=== PATIENT | female | born 1990 | race African-American/Black ===

== ENCOUNTER 2020-09-08 20:51 | Emergency (ER) | payer OTHER | END 2020-09-08 20:57 | disposition home or self-care (01) | LOC: JVIRT 20:51 | DX: Z11.59 Encounter for screening for other viral diseases (principal) | CPT/HCPCS: C9803; Q3014-GT; U0003 ==

== ENCOUNTER 2020-10-29 13:11 | Emergency (ER) | payer OTHER | END 2020-10-29 15:27 | disposition home or self-care (01) | LOC: JVIRT 13:11 | DX: Z20.822 Contact with and (suspected) exposure to COVID-19 (principal) | CPT/HCPCS: C9803; G2012-GT; U0003 ==